=== PATIENT | male | born 1975 | race Caucasian/White ===

== ENCOUNTER → 2019-08-09 | Outpatient (CLI) | payer BC ==
--- NOTE | 2019-08-10 13:41 | ECHOF ---
Referral Reason:I49.3 Premature ventricular beats MEASUREMENTS -------- HEIGHT: 182.9 cm WEIGHT: 129.3 kg BP: RVIDd: 3.0 cm (< 3.3) IVSd: 1.2 cm (0.6 - 1.1) LVIDd: 4.7 cm (3.9 - 5.3) LVPWd: 1.3 cm (0.6 - 1.1) IVSs: 1.4 cm LVIDs: 3.2 cm LVPWs: 1.8 cm LA Diam: 3.8 cm (2.7 - 3.8) Ao Diam: 2.6 cm (2.0 - 3.7) AV Cusp: 2.1 cm (1.5 - 2.6) LA Diam: 4.1 cm (2.7 - 3.8) MV EXCURSION: 20.130 mm (> 18.000) MV EF SLOPE: 86 mm/s (70 - 150) EPSS: 0.7 cm MV E Stanley: 0.91 m/s MV DecT: 213 ms MV A Stanley: 0.68 m/s MV E/A Ratio: 1.34 RAP: 5.00 mmHg RVSP: 14.41 mmHg FINDINGS -------- Sinus rhythm. This was a technically good study. The left ventricular size is normal. There is borderline concentric left ventricular hypertrophy. Overall left ventricular systolic function is normal with, an EF between 55 - 60 %. The diastolic filling pattern is normal for the age of the patient 11.42. The right ventricle is normal in size. The left atrial size is normal. The right atrial size is normal. The aortic valve is trileaflet, and appears structurally normal. No aortic stenosis or regurgitation. Mild mitral regurgitation is present. Mild tricuspid regurgitation present. Right ventricular systolic pressure is normal at < 35 mmHg. There is no evidence of pulmonary hypertension. There is no pulmonic regurgitation present. The aortic root size is normal. There is no pericardial effusion. CONCLUSIONS -------- 1. Sinus rhythm. 2. This was a technically good study. 3. The left ventricular size is normal. 4. There is borderline concentric left ventricular hypertrophy. 5. Overall left ventricular systolic function is normal with, an EF between 55 - 60 %. 6. The diastolic filling pattern is normal for the age of the patient 11.42 7. The right ventricle is normal in size. 8. The left atrial size is normal. 9. The right atrial size is normal. 10. The aortic valve is trileaflet, and appears structurally normal. No aortic stenosis or regurgitat ion. 11. Mild mitral regurgitation is present. 12. Mild tricuspid regurgitation present. 13. Right ventricular systolic pressure is normal at < 35 mmHg. 14. There is no evidence of pulmonary hypertension. 15. There is no pulmonic regurgitation present. 16. The aortic root size is normal. 17. There is no pericardial effusion. CONCRETE LAYER: Berenice Meza RDCS
--- NOTE | 2019-08-17 13:29 | HM ---
HOLTER MONITOR REPORT A 48-hour Holter recording. The patient in the diary just wrote he felt an irregular pulse on one occasion. Predominant rhythm appears to be sinus with isolated ventricular ectopic beats with some of them in bigeminal fashion, but no runs of SVT, VT or bradyarrhythmia were noted. Average heart rate was about 83 beats per minute on this 48 hour Holter recording. FINAL IMPRESSION: Predominant rhythm is sinus with average heart rate of 83 beats per minute. Rare isolated PACs and PVCs were noted. One short run of paroxysmal atrial tachycardia was noted. There was no evidence of any significant bradyarrhythmia. MMODL / IJN: [id number] /
== END | disposition home or self-care (01) ==
LOC: RADECHMAIN 15:01
PROVIDERS: ATTEND Family Medicine
DX: I47.1 Supraventricular tachycardia (principal); I49.1 Atrial premature depolarization; I49.3 Ventricular premature depolarization; I08.1 Rheumatic disorders of both mitral and tricuspid valves
CPT/HCPCS: 93225; 93226; 93306

== ENCOUNTER 2021-10-31 08:49 | Day surgery (SDC) | payer BC ==
[2021-10-30 11:57] VITALS: BMI 36.5
[~2021-10-31 08:49] MED LIST: LACTATED RINGERS 1,000 ML IV SCH
[2021-10-31] MEDS ORDERED: LACTATED RINGERS 1,000 ML IV ONE (09:01)
[2021-10-31 09:10] VITALS: TEMP 97.8
[2021-10-31] MEDS ORDERED: PROPOFOL 10 MG/ML 20 ML VIAL IV ONE (09:34)
--- NOTE | 2021-10-31 09:52 | P.PCN ---
Date of Procedure: 10/31/21 Procedure(s) Performed: BRIEF HISTORY: Patient is a 46 year-old pleasant white male scheduled for an elective colonoscopy as a part of screening for colorectal neoplasia. PROCEDURE PERFORMED: Colonoscopy. PREOPERATIVE DIAGNOSIS: Screening for colon cancer . IV sedation per Anesthesia. PROCEDURE: After informed consent was obtained, the patient, was brought into the endoscopy unit. IV sedation was administered by Anesthesia under continuous monitoring. Digital rectal examination was normal. Initially the Olympus CF-160 flexible video colonoscope was then inserted in the rectum, gradually advanced into the cecum without any difficulty. Careful examination was performed as the scope was gradually being withdrawn. Ileocecal valve and the appendiceal orifice were visualized and appeared normal. Prep was excellent. Mucosa of the cecum, ascending colon, transverse colon, descending colon, sigmoid colon, and rectum appeared normal. Retroflexion was performed in the rectum and no lesions were seen. The patient tolerated the procedure well. IMPRESSION: Normal-appearing colon from rectum to cecumno evidence of colorectal neoplasia . RECOMMENDATIONS: Findings of this examination were discussed with the patient as well as his family. He was advised to have a repeat screening colonoscopy in 10 years..
[2021-10-31 09:59] VITALS: RESP 16
[2021-10-31 10:11] VITALS: BP 135/78; PULSE 78
== END 2021-10-31 10:25 | disposition home or self-care (01) ==
LOC: ORWHC2ENDO 08:49
PROVIDERS: ATTEND Internal Medicine Gastroenterology
DX: Z12.11 Encounter for screening for malignant neoplasm of colon (principal); I10 Essential (primary) hypertension; E66.01 Morbid (severe) obesity due to excess calories
CPT/HCPCS: 45378; J2704

== ENCOUNTER 2022-01-19 15:56 | Emergency (ER) | payer BC, OTHER ==
[2022-01-19 23:39] LABS: Hepatitis C IgG Antibody Nonreactive (Nonreactive)
--- NOTE | 2022-01-20 01:18 | ED ---
Eye Problem HPI - General Chief complaint: Needlestick/Exposure Stated complaint: lead exposure Source: patient, RN notes reviewed Mode of arrival: ambulatory Limitations: no limitations - History of Present Illness Initial comments: This is a 46-year-old male who presents to the emergency department for bodily fluid exposure. 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 He irrigated his eyes immediately following the incident. Denies any eye pain or blurring of the vision. Per protocol, he is required to come to the emergency department for testing. Denies any fevers, chills, sore throat, cough, dyspnea, chest pain, palpitations, abdominal pain, nausea, vomiting, diarrhea, back pain, or headaches. MD chief complaint: other (bodily fluid exposure in the eyes) Treatments Prior to Arrival: irrigated eye - Related Data Home Medications Medication Instructions Recorded Confirmed Losartan Potassium 100 mg PO DAILY 10/30/21 10/30/21 hydroCHLOROthiazide 12.5 mg PO DAILY 10/30/21 10/30/21 Allergies Allergy/AdvReac Type Severity Reaction Status Date / Time No Known Allergies Allergy Verified 01/19/22 16:12 Review of Systems ROS Statement: Those systems with pertinent positive or pertinent negative responses have been documented in the HPI. ROS Other: All systems not noted in ROS Statement are negative. Past Medical History Past Medical History: Hypertension History of Any Multi-Drug Resistant Organisms: None Reported Past Surgical History: No Surgical Hx Reported Past Anesthesia/Blood Transfusion Reactions: No Reported Reaction Past Psychological History: No Psychological Hx Reported Smoking Status: Former smoker Past Alcohol Use History: None Reported Past Drug Use History: None Reported - Past Family History Father Family Medical History: Cancer General Exam Limitations: no limitations General appearance: alert, in no apparent distress Head exam: Present: atraumatic, normocephalic, normal inspection Eye exam: Present: normal appearance, PERRL, EOMI. Absent: scleral icterus, conjunctival injection, periorbital swelling Pupils: Present: normal accommodation Neurological exam: Present: alert, oriented X3, CN II-XII intact Psychiatric exam: Present: normal affect, normal mood Skin exam: Present: warm, dry, intact, normal color. Absent: rash Medical Decision Making - Medical Decision Making This is a 46-year-old male who presents to the emergency department for bodily fluid exposure. The appropriate paperwork was filled out and testing for HIV and hepatitis were ordered. Return precautions reviewed in depth, the patient is instructed to return to the emergency department with any new, worsening, or concerning symptoms. Patient verbalized understanding. This case was discussed in detail with the attending ED physician. Presentation, findings, and treatment plan discussed in detail as well. - Lab Data Lab Results 01/19/22 Range/Units 16:10 Hep C IgG Ab Nonreactive (Nonreactive) Disposition Clinical Impression: History of exposure to hazardous bodily fluids Disposition: HOME SELF-CARE Is patient prescribed a controlled substance at d/c from ED?: No Referrals: Humble Barkley MD [Primary Care Provider] - 1-2 days
[2022-01-20 04:47] LABS: Hepatitis B Surface Antibody Reactive (Nonreactive)
[2022-01-20 05:23] LABS: HIV 2 AB Non-Reactive (Non-Reactive); HIV AB P24 Non-Reactive (Non-Reactive); HIV P24 AG Non-Reactive (Non-Reactive)
== END 2022-01-19 16:18 | disposition home or self-care (01) ==
LOC: EC 15:56
DX: Z77.21 Contact with and (suspected) exposure to potentially hazardous body fluids (principal); Z87.891 Personal history of nicotine dependence
CPT/HCPCS: 36415; 86706; 86803; 87390; 99282